=== PATIENT | female | born 1995 | race Caucasian/White ===

== ENCOUNTER 2023-09-23 06:42 | Emergency (ER) | payer SELFPAY ==
[2023-09-23] MEDS ORDERED: Amoxicillin/Potassium Clav 875 MG TAB ONE (09:13)
== END 2023-09-23 09:21 | disposition home or self-care (01) ==
LOC: ERS 06:42
DX: S02.5XXA Fracture of tooth (traumatic), initial encounter for closed fracture (principal); F17.290 Nicotine dependence, other tobacco product, uncomplicated; X58.XXXA Exposure to other specified factors, initial encounter
CPT/HCPCS: 99282